=== PATIENT | female | born 1975 | race Two or more races ===

== ENCOUNTER 2018-11-21 07:00 | Outpatient (CLI) | payer OTHER ==
[~2018-11-21] VITALS: Ht 162.6 cm; Wt 85.3 kg
[2018-11-21] MEDS ORDERED: LOSARTAN POTASS25 MG ORAL (07:17)
[2018-11-21 07:25] VITALS: BP 114/81
[2018-11-21] MEDS ORDERED: Isovue-M 300 15ml INJ ONE (08:00)
[2018-11-21] MEDS ORDERED: Lidocaine 1% MPF 10mg/ml 5ml HHN ONE (08:00)
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
--- NOTE | 2018-11-21 08:12 | Pre-Procedure Note/Attestation ---
Pre-Procedure Note/Attestation Complete Prior to Procedure Planned Procedure: bilateral Procedure Narrative: Cervical epidural steroid injection Indications for Procedure Pre-Operative Diagnosis: cervical disc displacement Attestation I attest that I discussed the nature of the procedure; its benefits; risks and complications; and alternatives (and the risks and benefits of such alternatives ), prior to the procedure, with the patient (or the patient's legal major account representative). I attest that, if there was a reasonable possibility of needing a blood transfusion, the patient (or the patient's legal major account representative) was given the [facility] standardized written summary, pursuant to the [place] Blood Safety Act ([place] Health and Safety Code # 1645, as amended). I attest that I re-evaluated the patient just prior to the surgery and that there has been no change in the patient's H&P, except as documented below: Allie Parker MD Nov 21, 2018 08:12
[2018-11-21 08:35] VITALS: BP 126/83
--- NOTE | 2018-11-21 11:10 | Brief Operative Note ---
Immediate Post Operative Note Operative Note Chief Complaint: neck pain Pre-op Diagnosis: cervical disc displacement Procedure: cervical epidural steroid injection Post-op Diagnosis: cervical disc displacement Post-op Diagnosis: same as pre-op Findings: consistent w/pre-op dx studies Surgeon: Allie Parker M.D. Reliability Manager: none Additional Surgeons: none Anesthesiologist: none Anesthesia: local Specimen: none Complications: none Condition: stable Fluids: non Estimated Blood Loss: minimal Drains: none Packing: nonw Tourniquet time: 0 - min Implant(s) used?: Allie Reynolds MD Nov 21, 2018 11:10
--- NOTE | 2018-11-21 11:18 | Discharge Summary ---
Discharge Summary Hospital Course Date of Admission 11/21/2018 Date of Discharge 11/21/2018 Admitting Diagnosis cervical disc displacement Reason for Hospitalization: short stay for cervcial epidural HPI Michelle Dumas is a 43 year old female who was admitted on for Other Cervical Disc Displacement Consultations none Procedures Cervical epidural steroid injection Hospital Course short stay Discharge Condition Upon Discharge: stable Discharge Disposition Patient was discharged to home with daughter. Discharge Diagnoses: (1) Cervical disc displacement Discharge Instructions Discharge Instructions Follow up with: Dr. Parker Diet: regular Activity: as tolerated Follow Up Orders Will follow up in two weeks May Return to Work/School On: Nov 25, 2018 For Surgical Patients Dressing Care: keep dry and clean May shower: Yes Contact your physician for: bleeding, pain, tenderness, redness, swelling, yellowish discharge in the op. site Allie Parker MD Nov 21, 2018 11:18
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
--- NOTE | 2018-11-21 17:13 | Diagnostic Imaging Report ---
INDICATION: Pain, intraoperative TECHNIQUE: Intraoperative imaging Fluoroscopy time: 17.4 seconds Total dose: 0.13019 mGym2 Total number of images: One COMPARISON: None FINDINGS: Intraoperative imaging documents injection of contrast into what is presumably the lower cervical epidural space IMPRESSION: Intraoperative imaging, as described
== END 2018-11-21 08:55 | disposition home or self-care (01) ==
LOC: RAD 07:00 → EDSTATUS 10:02
DX: M50.20 Other cervical disc displacement, unspecified cervical region (principal)
CPT/HCPCS: 62321; 76000; 81025; Q9967